=== PATIENT | female | born 1995 | race Caucasian/White ===

== ENCOUNTER 2019-04-25 08:38 | Emergency (ER) | payer BC ==
[2019-04-25] MEDS ORDERED: Sodium Chloride 0.9% 1,000 ML IV ONE (08:50)
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
--- NOTE | 2019-04-25 08:59 | PCM.SN ---
- Free Text/Narrative Note: Called to ER for trauma code. On patient arrival, respiratory status stable. SpO2 100%. 20g PIV started to Rt deep saphenous. Only 1mL of blood was obtained for lab studies. Catheter secured with tape and tegaderm. IV flushes with ease.
[2019-04-25] MEDS ORDERED: Morphine 2 MG/ML Syringe IVPUSH ONE (09:05)
[2019-04-25] MEDS ORDERED: Iopamidol 755 MG/ML 500 ML Multipack Bottle IVPUSH STA (09:09)
--- NOTE | 2019-04-25 09:52 | CT ---
CT abdomen and pelvis Technique: Multiple axial sections were obtained from above the dome of the diaphragm inferiorly through the pubic symphysis. Intravenous contrast was utilized. No oral contrast was given. Limitations: Artifact from patient's arms as well as motion artifact. This significantly limits details. No gross abnormality within the liver or within the spleen. Kidneys are poorly seen within the right lower pole due to motion. No gross abnormality is otherwise seen within the kidneys. Pancreas shows no discrete abnormality. Aorta shows enhancement without aneurysm. No retroperitoneal adenopathy or mesenteric abnormalities are seen. No pelvic mass or adenopathy is seen. No free fluid or inflammatory change is seen. Bone window settings were reviewed which are somewhat limited due to motion. No gross abnormality is appreciated. Impression: 1. Limited exam due to motion. No definite acute finding is appreciated. Note: Recommend repeat exam when patient is able to cooperate. Diagnostic code #2 This report was dictated in [place] Standard Time
--- NOTE | 2019-04-25 09:52 | CT ---
Head CT Technique: Multiple axial sections through the brain were obtained. Intravenous contrast was not utilized. Findings: Scalp injury as noted and soft tissue hematoma within the right side of the scalp is noted. Mild motion artifact is seen. Ventricles along with basal cisterns and sulci over the convexities are within normal limits for the patient's age. No evidence of intracranial hemorrhage is seen. No midline shift or mass-effect is seen. No discrete calvarial abnormality is seen. Mastoid sinuses are clear. Paranasal sinuses show nothing acute. Impression: 1. Scalp injury as well as soft tissue hematoma within the scalp. 2. No acute intracranial abnormality is definitely identified. Diagnostic code #3 This report was dictated in [place] Standard Time
--- NOTE | 2019-04-25 09:52 | CT ---
CT chest Technique: Multiple axial sections through the chest were obtained. Intravenous contrast was utilized. Limitations: Motion artifact is present. Findings: Opacified aorta and pulmonary arteries showed no discrete abnormality. Soft tissue density is noted within the superior mediastinum most likely representing residual thymic tissue. No pericardial effusion is seen. Lungs show slight patchy areas of density within the right upper lung possibly due to pulmonary contusion. Lungs otherwise are grossly clear. Equivocal trace pneumothorax on the right side. This is not definite due to motion artifact. No displaced rib fractures are seen. Evaluation of ribs difficult because of motion. No vertebral body compression deformities are seen. No abnormal subluxation is seen. Possible sternal fracture is present. Impression: 1. Possible sternal fracture. 2. Findings suspicious for right upper lobe pulmonary contusion. 3. Equivocal minimal pneumothorax within the right chest. 4. Details are diminished due to significant motion. Diagnostic code #3 This report was dictated in [place] Standard Time
--- NOTE | 2019-04-25 09:52 | CT ---
CT cervical spine Technique: Multiple axial sections through the cervical spine were obtained. Study is nearly uninterpretable due to motion. No gross fracture is appreciated. Impression: 1. Study nearly uninterpretable. No gross abnormality. Note: Recommend repeat study when patient can cooperate. Diagnostic code #3 This report was dictated in [place] Standard Time
[2019-04-25 10:15] LABS: BLOOD UREA NITROGEN,BUN 16 mg/dL (7.0-18.0); CARBON DIOXIDE,CO2 19.9 mmol/L (21.0-32.0); CHLORIDE,CL 106 mmol/L (98-107); GLUCOSE RANDOM 138 mg/dL (74-106); POTASSIUM,K 4.1 mmol/L (3.5-5.1); SODIUM,NA 138 mmol/L (136-145)
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
== END 2019-04-25 09:35 ==
LOC: MW.ED 08:38
DX: S42.302A Unspecified fracture of shaft of humerus, left arm, initial encounter for closed fracture (principal); S01.81XA Laceration without foreign body of other part of head, initial encounter; S91.312A Laceration without foreign body, left foot, initial encounter; S81.012A Laceration without foreign body, left knee, initial encounter; R41.82 Altered mental status, unspecified; V43.53XA Car driver injured in collision with pick-up truck in traffic accident, initial encounter
CPT/HCPCS: 36415; 70450; 71260; 72125; 74177; 80053; 80307; 85025; 96361; 96374; 99285; J2270; J7030; Q9967

== ENCOUNTER 2020-11-18 18:12 | Inpatient (IN) | payer BC ==
[2020-11-18] MEDS ORDERED: Water For Irrigation,Sterile 1,000 ML Container IRR PRN (19:04)
[2020-11-18] MEDS ORDERED: Nalbuphine 10 MG/1 ML Vial IVPUSH PRN (19:04)
[2020-11-18] MEDS ORDERED: Misoprostol 200 MCG Tab PO PRN (19:04)
[2020-11-18] MEDS ORDERED: Butorphanol 1 MG/ML SDV IVPUSH PRN (19:04)
[2020-11-18] MEDS ORDERED: Sodium Chloride 0.9% 10 ML SDV IV PRN (19:04)
[2020-11-18] MEDS ORDERED: Carboprost Tromethamine 250 MCG/1 ML Amp IM PRN (19:04)
[2020-11-18] MEDS ORDERED: Tranexamic Acid 1,000 MG in Sodium Chloride 0.9% 100 ML IV PRN (19:04)
[2020-11-18] MEDS ORDERED: Sodium Chloride 0.9% 2.5 ML Syringe FLUSH PRN (19:04)
[2020-11-18] MEDS ORDERED: Methylergonovine 0.2 MG/1 ML Amp IM PRN (19:04)
[2020-11-18] MEDS ORDERED: Lidocaine 1% 50 ML MDV INJECT PRN (19:04)
[2020-11-18] MEDS ORDERED: Sodium Chloride 0.9% 10 ML Syringe FLUSH PRN (19:04)
[2020-11-18] MEDS ORDERED: Ondansetron 4 MG/2 ML SDV IVPUSH PRN (19:04)
[2020-11-18] MEDS ORDERED: Misoprostol 25 MCG (1/4 of 100 MCG) Tab VAG PRN (19:11)
[2020-11-18] MEDS ORDERED: Terbutaline 1 MG/ML SDV SUBCUT PRN (19:11)
[2020-11-18] MEDS ORDERED: Oxytocin/0.9 % Sodium Chloride 30 UNIT/500 ML BAG IV SCH ×2 (19:15)
[2020-11-18] MEDS ORDERED: Lactated Ringers 1,000 ML IV SCH (19:15)
[2020-11-19] MEDS ORDERED: Ropivacaine HCl/PF 200 ML ONE (02:03)
--- NOTE | 2020-11-19 02:27 | PCM.POSTAN ---
POST ANESTHESIA ASSESSMENT - MENTAL STATUS Mental Status: Alert, Oriented - RESPIRATORY Respiratory Status: Respiratory Rate WNL, Airway Patent, O2 Saturation Stable - CARDIOVASCULAR CV Status: Pulse Rate WNL, Blood Pressure Stable - GASTROINTESTINAL GI Status: No Symptoms - POST OP HYDRATION Hydration Status: Adequate & Stable
--- NOTE | 2020-11-19 02:27 | PCM.PREANE ---
Preanesthetic Assessment - Anesthesia/Transfusion/Family Hx Anesthesia History: Prior Anesthesia Without Reaction Family History of Anesthesia Reaction: No Transfusion History: Prior Transfusion Without Reaction - Review of Systems General: No Symptoms Pulmonary: No Symptoms Cardiovascular: No Symptoms Gastrointestinal: No Symptoms Neurological: No Symptoms Other: Reports: None - Physical Assessment Height: 5 ft 8 in Weight: 278 lb ASA Class: 2 Mental Status: Alert & Oriented x3 Airway Class: Mallampati = 3 Dentition: Reports: Normal Dentition ROM/Head Extension: Full Lungs: Clear to Auscultation, Normal Respiratory Effort Cardiovascular: Regular Rate, Regular Rhythm - Lab Values: Laboratory Last Values WBC 11.20 K/uL (4.0-11.0) H 11/18/20 18:47 RBC 4.24 M/uL (4.30-5.90) L 11/18/20 18:47 Hgb 12.1 g/dL (12.0-16.0) 11/18/20 18:47 Hct 36.0 % (36.0-46.0) 11/18/20 18:47 MCV 84.9 fL (80.0-98.0) 11/18/20 18:47 MCH 28.5 pg (27.0-32.0) 11/18/20 18:47 MCHC 33.6 g/dL (31.0-37.0) 11/18/20 18:47 RDW Std Deviation 46.6 fl (28.0-62.0) 11/18/20 18:47 RDW Coeff of Mayela 15 % (11.0-15.0) 11/18/20 18:47 Plt Count 209 K/uL (150-400) 11/18/20 18:47 MPV 12.20 fL (7.40-12.00) H 11/18/20 18:47 Nucleated RBC % 0.0 /100WBC 11/18/20 18:47 Nucleated RBCs # 0 K/uL 11/18/20 18:47 APTT 27.6 SEC (18.6-31.3) 11/18/20 18:47 SARS-CoV-2 RNA (VENKAT) NEGATIVE (NEGATIVE) 11/18/20 18:52 Blood Type AB POSITIVE 11/18/20 18:47 Antibody Screen NEGATIVE 11/18/20 18:47 - Allergies Allergies/Adverse Reactions: Allergies Allergy/AdvReac Type Severity Reaction Status Date / Time hydromorphone Allergy Vomiting Verified 11/18/20 19:01 - Blood Blood Available: Yes Product(s) Available: PRBC, FFP, Platelets - Anesthesia Plan Pre-Op Medication Ordered: None - Acknowledgements Anesthesia Type Planned: Epidural Pt an Appropriate Candidate for the Planned Anesthesia: Yes Alternatives and Risks of Anesthesia Discussed w Pt/Guardian: Yes Pt/Guardian Understands and Agrees with Anesthesia Plan: Yes PreAnesthesia Questionnaire Cardiovascular History: Reports: Blood Clots/VTE/DVT Genitourinary History: Reports: Renal Calculus 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 Musculoskeletal History: Reports: Fracture Other Musculoskeletal History: fractures of skull, neck , right ankle, left femur, left knee, left arm, ribs in 2019 Psychiatric History: Reports: Anxiety Dermatologic History: Reports: Eczema - Infectious Disease History Infectious Disease History: Reports: Chicken Pox - Past Surgical History Cardiovascular Surgical History: Reports: None Respiratory Surgical History: Reports: None Female Surgical History: Reports: None Musculoskeletal Surgical History: Reports: Other (See Below) Other Musculoskeletal Surgeries/Procedures:: ACL repair Dermatological Surgical History: Reports: None - HOME MEDS Home Medications: Home Meds Doxylamine Succinate [Unisom] 1 tab PO BEDTIME 11/18/20 [History] Heparin Sodium 15,000 units SQ Q12H 11/18/20 [History] Pnv No.95/Ferrous Fum/Folic AC [ Tablet] 1 tab PO DAILY 11/18/20 [History] - CURRENT (IN HOUSE) MEDS Current Meds: Current Medications Butorphanol Tartrate (Butorphanol 1 Mg/Ml Sdv) 1 mg IVPUSH Q1H PRN PRN Reason: Pain (severe 7-10) Last Admin: 11/19/20 00:37 Dose: 1 mg Documented by: Carboprost Tromethamine (Carboprost Tromethamine 250 Mcg/1 Ml Amp) 250 mcg IM ASDIRECTED PRN PRN Reason: Post Hemorrhage Oxytocin/Sodium Chloride (Oxytocin 30 Unit/500 Ml-Ns) 30 unit in 500 mls @ 999 mls/hr IV TITRATE RUBY Tranexamic Acid 1,000 mg/ (Sodium Chloride) 110 mls @ 660 mls/hr IV ONETIME PRN PRN Reason: Bleeding Lactated Ringer's (Ringers, Lactated) 1,000 mls @ 150 mls/hr IV ASDIRECTED RUBY Oxytocin/Sodium Chloride (Oxytocin 30 Unit/500 Ml-Ns) 30 unit in 500 mls @ 2 mls/hr IV TITRATE RUBY; Protocol Lidocaine HCl (Lidocaine 1% 50 Ml Mdv) 50 ml INJECT ONETIME PRN PRN Reason: Laceration repair Methylergonovine Maleate (Methylergonovine 0.2 Mg/1 Ml Amp) 0.2 mg IM ASDIRECTED PRN PRN Reason: Post Hemorrhage Misoprostol (Misoprostol 200 Mcg Tab) 200 mcg PO ONETIME PRN PRN Reason: Post Hemorrhage Misoprostol (Misoprostol 25 Mcg (1/4 Of 100 Mcg) Tab) 25 mcg VAG Q4H PRN PRN Reason: Cervical Ripening Last Admin: 11/18/20 20:09 Dose: 25 mcg Documented by: Nalbuphine HCl (Nalbuphine 10 Mg/1 Ml Vial) 10 mg IVPUSH Q1H PRN PRN Reason: Pain (severe 7-10) Ondansetron HCl (Ondansetron 4 Mg/2 Ml Sdv) 4 mg IVPUSH Q6H PRN PRN Reason: Nausea/Vomiting Last Admin: 11/19/20 00:36 Dose: 4 mg Documented by: Sodium Chloride (Sodium Chloride 0.9% 10 Ml Syringe) 10 ml FLUSH ASDIRECTED PRN PRN Reason: Keep Vein Open Sodium Chloride (Sodium Chloride 0.9% 2.5 Ml Syringe) 2.5 ml FLUSH ASDIRECTED PRN PRN Reason: Keep Vein Open Sodium Chloride (Sodium Chloride 0.9% 10 Ml Sdv) 10 ml IV ASDIRECTED PRN PRN Reason: IV Use Sterile Water (Water For Irrigation,Sterile 1,000 Ml Container) 1,000 ml IRR ASDIRECTED PRN PRN Reason: delivery Terbutaline Sulfate (Terbutaline 1 Mg/Ml Sdv) 0.25 mg SUBCUT ASDIRECTED PRN PRN Reason: Tacysystole Discontinued Medications Ropivacaine (Naropin 0.2%) Confirm Administered Dose 200 mls @ as directed .ROUTE .STK-MED ONE Stop: 11/19/20 02:04 - Pre-Procedure Checklist Attending Provider Aware: Yes Chart Reviewed: Yes Consent Signed: Yes Labs Reviewed: Yes VS/FHR Reviewed: Yes Patient Identification Confirmation Method: Reports: Verbal Patient Pt an Appropriate Candidate for the Planned Anesthesia: Yes Alternatives and Risks of Anesthesia Discussed w Pt/Guardian: Yes - Procedure Procedure Start Date: 11/19/20 Procedure Start Time: 02:[address]: Reports: Blood Pressure, Heart Rate, SPO2 Functional IV: Yes Safety Measures: Reports: Patient Identified, Procedure Verified, Site Verified, Procedure Time Out Patient Position: Reports: Sitting Prep: Reports: Betadine x3, Sterile Drape Local Anesthetic: Reports: Intradermal Wheal w Lidocaine 1% Regional Placement Level: Reports: L3-4 Needle: Reports: 17 g Touhy Approach: Reports: Midline Technique: Reports: CLAUDIA Plastic Syringe Parasthesia: Reports: None Test Dose Time: 02:14 Test Dose Medication: Reports: Lidocaine 1.5% w Epinephrine 1:200,000 Test Dose Response: Reports: Negative Loading Dose Time: 02:12 Loading Dose Medication: bupivicaine 0.25% 10cc Loading Dose Patient Position: sitting Continuous Infusion Start Time: 02:20 Continuous Infusion Medication: ropivicaine 0.2% Continuous Infusion Rate: 16 Continuous Infusion PCS Bolus Option: 4 Patient Position Post Placement: Reports: Supline/LORENZO VS and FHR Monitored in Unit Post Placement: Yes Procedure End Date: 11/19/20 Procedure End Time: 03:10
[2020-11-19] MEDS ORDERED: Sodium Chloride 0.9% 0 ML ONE ×2 (06:56→06:57)
[2020-11-19] MEDS ORDERED: Sodium Chloride 0.9% 1,000 ML IRR SCH (07:00)
[2020-11-19] MEDS ORDERED: fentaNYL 100 MCG/2 ML SDV ONE (07:54)
[2020-11-19] MEDS ORDERED: Bupivacaine 0.5% 10 ML SDV ONE (07:56)
[2020-11-19] MEDS ORDERED: Lidocaine 2% 5 ML SDV ONE (07:56)
[2020-11-19] MEDS ORDERED: ceFAZolin 1 GM Vial ONE (08:07)
[2020-11-19] MEDS ORDERED: Azithromycin 500 MG in Sodium Chloride 0.9% 250 ML IV SCH (08:15)
[2020-11-19] MEDS ORDERED: Morphine PF 10 MG/10 ML SDV ONE (08:34)
[2020-11-19] MEDS ORDERED: Dextrose 10% in Water 500 ML ONE (08:50)
[2020-11-19] MEDS ORDERED: Ondansetron 4 MG/2 ML SDV ONE (08:58)
[2020-11-19] MEDS ORDERED: Oxytocin 10 Units/1 ML SDV ONE (08:58)
[2020-11-19] MEDS ORDERED: Ketorolac 30 MG/ML SDV ONE (08:58)
[2020-11-19] MEDS ORDERED: Acetaminophen/oxyCODONE 325-5 MG Tab PO PRN ×2 (09:09→11:41)
[2020-11-19] MEDS ORDERED: Ondansetron 4 MG/2 ML SDV IVPUSH PRN ×2 (09:09→11:41)
[2020-11-19] MEDS ORDERED: Lanolin 100% Cream 7 GM Tube TOP PRN (09:09)
[2020-11-19] MEDS ORDERED: Bisacodyl 10 MG Supp RECTAL PRN (09:09)
[2020-11-19] MEDS ORDERED: diphenhydrAMINE 50 MG/ML SDV IVPUSH PRN ×2 (09:09→11:41)
[2020-11-19] MEDS ORDERED: Lactated Ringers 1,000 ML IV SCH (09:15)
[2020-11-19] MEDS ORDERED: Oxytocin/0.9 % Sodium Chloride 30 UNIT/500 ML BAG IV SCH (09:15)
--- NOTE | 2020-11-19 09:18 | PCM.OPNOTE ---
<Shira Garcia - Last Filed: 11/19/20 09:40> - General Post-Op/Procedure Note Date of Surgery/Procedure: 11/26/20 Operative Procedure(s): Section Pre Op Diagnosis: complicated by maternal obesity and lovenox and heparin use. Induction of labor d/t oligohydramnios complicated by persistent category 2 FHT and nonreassuring heart tones. Post-Op Diagnosis: Same Anesthesia Technique: Epidural Primary Surgeon: Lucy Robledo Chief I Dispatcher: Shira Garcia Pathology: Placenta Fluid Replacement, Intraop: 1,500 Output, Urine Amount: 350 EBL in mLs: 600 Condition: Stable Free Text/Narrative:: 25-year-old female at 39w1d admitted for induction of labor due to oligohydramnios s/p primary section d/t persistent category II FHT and nonreassuring heart tones. complicated by maternal obesity and patient taking lovenox and heparin d/t prior DVT. Blood type AB+, antibody negative, GBS negative, Rubella immune. Viable male. Apgars 2/6/9, weight 2500 grams. <Lucy Robledo - Last Filed: 11/19/20 09:49> - General Post-Op/Procedure Note Findings: Live male , Apgars 2/6/8, weight 2500g Couvelaire-appearing uterus posteriorly Normal-appearing ovaries and tubes Small umbilical cord Anesthesia Provider: Connor Vallejo Pathology: Umbilical cord gases and blood Complications: Unable to deliver head, bandage scissors used to T hysterotomy and allow for breech extraction Free Text/Narrative:: Intake & Output 11/18/20 11/19/20 11/19/20 22:59 06:59 14:59 Intake Total 1500 Output Total 350 Balance 1150
[2020-11-19] MEDS ORDERED: Naloxone 0.4 MG/ML Syringe IVPUSH PRN (11:41)
[2020-11-19] MEDS ORDERED: fentaNYL 100 MCG/2 ML SDV IVPUSH PRN (11:41)
[2020-11-19] MEDS ORDERED: Nalbuphine 10 MG/1 ML Vial IVPUSH PRN (11:41)
--- NOTE | 2020-11-19 11:43 | PCM48HPAN ---
Post Anesthesia Note - EVALUATION WITHIN 48HRS OF ANESTHETIC Vital Signs in Normal Range: Yes Patient Participated in Evaluation: Yes Respiratory Function Stable: Yes Airway Patent: Yes Cardiovascular Function Stable: Yes Hydration Status Stable: Yes Pain Control Satisfactory: Yes Nausea and Vomiting Control Satisfactory: Yes Mental Status Recovered: Yes Vital Signs: Last Vital Signs Temp 96.8 F L 11/19/20 09:10 Pulse 74 11/19/20 09:10 Resp 24 H 11/19/20 09:10 BP 107/49 L 11/19/20 09:10 Pulse Ox 96 11/19/20 09:10
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
[2020-11-19] MEDS: Ketorolac 30 MG/ML SDV IVPUSH SCH ×2 (15:46→21:30)
[2020-11-19] MEDS: Docusate Sodium 100 MG Cap PO SCH (21:00)
[2020-11-19] MEDS: Enoxaparin 150 MG/1 ML Syringe SUBCUT SCH (22:06)
[2020-11-20] MEDS: Ketorolac 30 MG/ML SDV IVPUSH SCH ×3 (04:02→09:06)
--- NOTE | 2020-11-20 07:11 | PCM.PNPP ---
<Shira Garcia - Last Filed: 11/20/20 07:31> - General Info Date of Service: 11/20/20 Admission Dx/Problem (Free Text): Induction of labor s/t section Subjective Update: Appears to be doing okay. Has stomach pain while eating. Denies nausea or vomiting. Otherwise pain controlled with medication. Denies passing gas or bowel movement, took docusate yesterday. Erickson catheter out this morning, has not spontaneously urinated yet. Ambulating well. in nursery, so has been pumping to encourage milk supply. - Review of Systems General: Reports: No Symptoms HEENT: Reports: No Symptoms Pulmonary: Reports: No Symptoms Cardiovascular: Reports: No Symptoms Gastrointestinal: Reports: Abdominal Pain, Decreased Appetite Genitourinary: Reports: No Symptoms Musculoskeletal: Reports: No Symptoms Skin: Reports: No Symptoms Neurological: Reports: No Symptoms Psychiatric: Reports: No Symptoms - General Info Date of Service: 11/20/20 - Patient Data Vital Signs - Most Recent: Last Vital Signs Temp 36.6 C 11/20/20 02:00 Pulse 96 11/20/20 04:00 Resp 17 11/20/20 04:00 BP 114/55 L 11/20/20 02:00 Pulse Ox 97 11/20/20 04:00 Weight - Most Recent: 126.099 kg I&O - Last 24 Hours: Intake & Output 11/19/20 11/20/20 11/20/20 22:59 06:59 14:59 Output Total 250 Balance -250 Lab Results - Last 24 Hours: Laboratory Results - last 24 hr 11/19/20 11/20/20 Range/Units 08:26 04:40 Hgb 9.9 L (12.0-16.0) g/dL Hct 30.3 L (36.0-46.0) % Cord ABG pH 7.188 (7.18-7.38) Cord ABG Base Excess -10 (-10--2) Cord VBG pH 7.233 L (7.25-7.45) Cord VBG Base Excess -5.8 (-10--2) Med Orders - Current: Current Medications Bisacodyl (Bisacodyl 10 Mg Supp) 10 mg RECTAL ONETIME PRN PRN Reason: Constipation Butorphanol Tartrate (Butorphanol 1 Mg/Ml Sdv) 1 mg IVPUSH Q1H PRN PRN Reason: Pain (severe 7-10) Last Admin: 11/19/20 00:37 Dose: 1 mg Documented by: Carboprost Tromethamine (Carboprost Tromethamine 250 Mcg/1 Ml Amp) 250 mcg IM ASDIRECTED PRN PRN Reason: Post Hemorrhage Diphenhydramine HCl (Diphenhydramine 50 Mg/Ml Sdv) 25 mg IVPUSH Q6H PRN PRN Reason: Itching or Nausea Diphenhydramine HCl (Diphenhydramine 50 Mg/Ml Sdv) 12.5 mg IVPUSH Q2H PRN PRN Reason: Itching Docusate Sodium (Docusate Sodium 100 Mg Cap) 100 mg PO BID [facility] Last Admin: 11/19/20 21:00 Dose: 100 mg Documented by: Emollient Ointment (Lanolin 100% Cream 7 Gm Tube) 0 gm TOP ASDIRECTED PRN PRN Reason: Sore Nipples Last Admin: 11/20/20 02:00 Dose: 7 gram Documented by: Enoxaparin Sodium (Enoxaparin 150 Mg/1 Ml Syringe) 120 mg SUBCUT Q12H RUBY Last Admin: 11/19/20 22:06 Dose: 120 mg Documented by: Fentanyl (Fentanyl 100 Mcg/2 Ml Sdv) 50 mcg IVPUSH Q1H PRN PRN Reason: Pain (severe 7-10) Oxytocin/Sodium Chloride (Oxytocin 30 Unit/500 Ml-Ns) 30 unit in 500 mls @ 999 mls/hr IV TITRATE [facility] Tranexamic Acid 1,000 mg/ (Sodium Chloride) 110 mls @ 660 mls/hr IV ONETIME PRN PRN Reason: Bleeding Lactated Ringer's (Ringers, Lactated) 1,000 mls @ 150 mls/hr IV ASDIRECTED [facility] Last Admin: 11/19/20 07:47 Dose: 150 mls/hr Documented by: Oxytocin/Sodium Chloride (Oxytocin 30 Unit/500 Ml-Ns) 30 unit in 500 mls @ 2 mls/hr IV TITRATE RUBY; Protocol Sodium Chloride (Sodium Chloride 0.9%) 1,000 mls @ 125 mls/hr IRR ASDIRECTED [facility] Azithromycin 500 mg/ Sodium (Chloride) 250 mls @ 250 mls/hr IV ONETIME RUBY Last Admin: 11/19/20 10:03 Dose: 250 mls/hr Documented by: Lactated Ringer's (Ringers, Lactated) 1,000 mls @ 125 mls/hr IV ASDIRECTED [facility] Last Admin: 11/19/20 15:58 Dose: 125 mls/hr Documented by: Oxytocin/Sodium Chloride (Oxytocin 30 Unit/500 Ml-Ns) 30 unit in 500 mls @ 999 mls/hr IV TITRATE RUBY; Protocol Ibuprofen (Ibuprofen 800 Mg Tab) 800 mg PO Q8H PRN PRN Reason: mild pain or fever Ketorolac Tromethamine (Ketorolac 30 Mg/Ml Sdv) 30 mg IVPUSH Q6H [facility] Stop: 11/20/20 09:16 Last Admin: 11/20/20 04:02 Dose: 30 mg Documented by: Lidocaine HCl (Lidocaine 1% 50 Ml Mdv) 50 ml INJECT ONETIME PRN PRN Reason: Laceration repair Methylergonovine Maleate (Methylergonovine 0.2 Mg/1 Ml Amp) 0.2 mg IM ASDIRECTED PRN PRN Reason: Post Hemorrhage Misoprostol (Misoprostol 200 Mcg Tab) 200 mcg PO ONETIME PRN PRN Reason: Post Hemorrhage Misoprostol (Misoprostol 25 Mcg (1/4 Of 100 Mcg) Tab) 25 mcg VAG Q4H PRN PRN Reason: Cervical Ripening Last Admin: 11/18/20 20:09 Dose: 25 mcg Documented by: Nalbuphine HCl (Nalbuphine 10 Mg/1 Ml Vial) 10 mg IVPUSH Q1H PRN PRN Reason: Pain (severe 7-10) Nalbuphine HCl (Nalbuphine 10 Mg/1 Ml Vial) 5 mg IVPUSH ASDIRECTED PRN PRN Reason: Itching Naloxone HCl (Naloxone 0.4 Mg/Ml Syringe) 0.1 mg IVPUSH ONETIME PRN PRN Reason: Respiratory Depression Stop: 11/20/20 11:42 Ondansetron HCl (Ondansetron 4 Mg/2 Ml Sdv) 4 mg IVPUSH Q6H PRN PRN Reason: Nausea/Vomiting Last Admin: 11/19/20 00:36 Dose: 4 mg Documented by: Ondansetron HCl (Ondansetron 4 Mg/2 Ml Sdv) 4 mg IVPUSH Q4H PRN PRN Reason: Nausea/Vomiting Ondansetron HCl (Ondansetron 4 Mg/2 Ml Sdv) 4 mg IVPUSH Q6H PRN PRN Reason: Nausea Oxycodone/Acetaminophen (Acetaminophen/Oxycodone 325-5 Mg Tab) 1 tab PO Q4H PRN PRN Reason: Pain (severe 7-10) Oxycodone/Acetaminophen (Acetaminophen/Oxycodone 325-5 Mg Tab) 2 tab PO Q4H PRN PRN Reason: Pain (severe 7-10) Oxycodone/Acetaminophen (Acetaminophen/Oxycodone 325-5 Mg Tab) 2 tab PO Q6H PRN PRN Reason: Pain (moderate 4-6) Sodium Chloride (Sodium Chloride 0.9% 10 Ml Syringe) 10 ml FLUSH ASDIRECTED PRN PRN Reason: Keep Vein Open Sodium Chloride (Sodium Chloride 0.9% 2.5 Ml Syringe) 2.5 ml FLUSH ASDIRECTED PRN PRN Reason: Keep Vein Open Sodium Chloride (Sodium Chloride 0.9% 10 Ml Sdv) 10 ml IV ASDIRECTED PRN PRN Reason: IV Use Sterile Water (Water For Irrigation,Sterile 1,000 Ml Container) 1,000 ml IRR ASDIRECTED PRN PRN Reason: delivery Terbutaline Sulfate (Terbutaline 1 Mg/Ml Sdv) 0.25 mg SUBCUT ASDIRECTED PRN PRN Reason: Tacysystole Discontinued Medications Bupivacaine HCl (Bupivacaine 0.5% 10 Ml Sdv) Confirm Administered Dose 20 ml .ROUTE .STK-MED ONE Stop: 11/19/20 07:57 Cefazolin Sodium (Cefazolin 1 Gm Vial) Confirm Administered Dose 1 gm .ROUTE .STK-MED ONE Stop: 11/19/20 08:08 Fentanyl (Fentanyl 100 Mcg/2 Ml Sdv) Confirm Administered Dose 100 mcg .ROUTE .STK-MED ONE Stop: 11/19/20 07:55 Ropivacaine (Naropin 0.2%) Confirm Administered Dose 200 mls @ as directed .ROUTE .STK-MED ONE Stop: 11/19/20 02:04 Sodium Chloride (Normal Saline (Advbag)) Confirm Administered Dose 250 mls @ as directed .ROUTE .STK-MED ONE Stop: 11/19/20 06:57 Sodium Chloride (Normal Saline (Advbag)) Confirm Administered Dose 250 mls @ as directed .ROUTE .STK-MED ONE Stop: 11/19/20 06:58 Dextrose/Water (Dextrose 10% In Water) Confirm Administered Dose 500 mls @ as directed .ROUTE .STK-MED ONE Stop: 11/19/20 08:51 Ketorolac Tromethamine (Ketorolac 30 Mg/Ml Sdv) Confirm Administered Dose 30 mg .ROUTE .STK-MED ONE Stop: 11/19/20 08:59 Lidocaine (Lidocaine 2% 5 Ml Sdv) Confirm Administered Dose 5 ml .ROUTE .STK-MED ONE Stop: 11/19/20 07:57 Miscellaneous Medication (Phenylephrine Hcl In 0.9% Nacl 1 Mg/10 Ml Syringe) Confirm Administered Dose 1 mg .ROUTE .STK-MED ONE Stop: 11/19/20 08:31 Miscellaneous Medication (Phenylephrine Hcl In 0.9% Nacl 1 Mg/10 Ml Syringe) Confirm Administered Dose 1 mg .ROUTE .STK-MED ONE Stop: 11/19/20 08:59 Morphine Sulfate (Morphine Pf 10 Mg/10 Ml Sdv) Confirm Administered Dose 10 mg .ROUTE .STK-MED ONE Stop: 11/19/20 08:35 Ondansetron HCl (Ondansetron 4 Mg/2 Ml Sdv) Confirm Administered Dose 4 mg .ROUTE .STK-MED ONE Stop: 11/19/20 08:59 Oxytocin (Oxytocin 10 Units/1 Ml Sdv) Confirm Administered Dose 30 unit .ROUTE .STK-MED ONE Stop: 11/19/20 08:59 - Infant Interaction Disposition, : Dustin to Nursery Feeding: Other (see below) (Pumping until able to breastfeed) Support Person: - Recovery Exam Fundal Tone: Firm Fundal Level: 1 Fingerbreadths Below Umbilicus Fundal Placement: Midline Lochia Amount: Scant Lochia Color: Rubra/Red Episiotomy/Laceration: None Bladder Status: Voiding Urinary Elimination: Other (see below) (Catheter out this morning, no spontaneously urination yet) - Exam General: Alert, Oriented HEENT: EOMI Neck: Supple Lungs: Clear to Auscultation, Normal Respiratory Effort Cardiovascular: Regular Rate, Regular Rhythm, No Murmurs GI/Abdominal Exam: Soft, Tender Extremities: Normal Inspection, Normal Range of Motion, Non-Tender, No Pedal Edema Skin: Warm, Dry, Intact Wound/Incisions: Healing Well, Dressing Dry and Intact Neurological: No New Focal Deficit Psy/Mental Status: Alert, Normal Affect, Normal Mood - Problem List Review Problem List Initiated/Reviewed/Updated: Yes - Assessment Assessment:: 25-year-old female at 39w1d POD #1 admitted for induction of labor due to oligohydramnios s/p primary section d/t persistent category II FHT and nonreassuring heart tones. Endorses abdominal pain with food. Taking docusate. hbg 9.9 from 12.1, asymptomatic. Lovenox started last night. - Plan Plan:: -Routine care - Multimodal pain control - Monitor for spontaneous urination - Continue to monitor abdominal pain with eating, will likely resolve - Continue to monitor incision and dressing - F/u in clinic in 2 weeks - Lovenox started <Lucy Robledo - Last Filed: 11/20/20 09:59> - General Info Functional Status: Reports: Pain Controlled, Tolerating Diet, Ambulating - Patient Data Vital Signs - Most Recent: Last Vital Signs Temp 36.9 C 11/20/20 07:59 Pulse 93 11/20/20 07:59 Resp 18 11/20/20 07:59 BP 96/61 11/20/20 07:59 Pulse Ox 96 11/20/20 07:59 I&O - Last 24 Hours: Intake & Output 11/19/20 11/20/20 11/20/20 22:59 06:59 14:59 Intake Total 500 Output Total 250 500 Balance -250 0 Lab Results - Last 24 Hours: Laboratory Results - last 24 hr 11/19/20 11/20/20 Range/Units 08:26 04:40 Hgb 9.9 L (12.0-16.0) g/dL Hct 30.3 L (36.0-46.0) % Cord ABG pH 7.188 (7.18-7.38) Cord ABG Base Excess -10 (-10--2) Cord VBG pH 7.233 L (7.25-7.45) Cord VBG Base Excess -5.8 (-10--2) Med Orders - Current: Current Medications Bisacodyl (Bisacodyl 10 Mg Supp) 10 mg RECTAL ONETIME PRN PRN Reason: Constipation Butorphanol Tartrate (Butorphanol 1 Mg/Ml Sdv) 1 mg IVPUSH Q1H PRN PRN Reason: Pain (severe 7-10) Last Admin: 11/19/20 00:37 Dose: 1 mg Documented by: Carboprost Tromethamine (Carboprost Tromethamine 250 Mcg/1 Ml Amp) 250 mcg IM ASDIRECTED PRN PRN Reason: Post Hemorrhage Diphenhydramine HCl (Diphenhydramine 50 Mg/Ml Sdv) 25 mg IVPUSH Q6H PRN PRN Reason: Itching or Nausea Diphenhydramine HCl (Diphenhydramine 50 Mg/Ml Sdv) 12.5 mg IVPUSH Q2H PRN PRN Reason: Itching Docusate Sodium (Docusate Sodium 100 Mg Cap) 100 mg PO BID [facility] Last Admin: 11/20/20 09:05 Dose: 100 mg Documented by: Emollient Ointment (Lanolin 100% Cream 7 Gm Tube) 0 gm TOP ASDIRECTED PRN PRN Reason: Sore Nipples Last Admin: 11/20/20 02:00 Dose: 7 gram Documented by: Enoxaparin Sodium (Enoxaparin 150 Mg/1 Ml Syringe) 120 mg SUBCUT Q12H [facility] Last Admin: 11/20/20 09:08 Dose: 120 mg Documented by: Fentanyl (Fentanyl 100 Mcg/2 Ml Sdv) 50 mcg IVPUSH Q1H PRN PRN Reason: Pain (severe 7-10) Oxytocin/Sodium Chloride (Oxytocin 30 Unit/500 Ml-Ns) 30 unit in 500 mls @ 999 mls/hr IV TITRATE [facility] Tranexamic Acid 1,000 mg/ (Sodium Chloride) 110 mls @ 660 mls/hr IV ONETIME PRN PRN Reason: Bleeding Lactated Ringer's (Ringers, Lactated) 1,000 mls @ 150 mls/hr IV ASDIRECTED [facility] Last Admin: 11/19/20 07:47 Dose: 150 mls/hr Documented by: Oxytocin/Sodium Chloride (Oxytocin 30 Unit/500 Ml-Ns) 30 unit in 500 mls @ 2 mls/hr IV TITRATE [facility]; Protocol Sodium Chloride (Sodium Chloride 0.9%) 1,000 mls @ 125 mls/hr IRR ASDIRECTED [facility] Azithromycin 500 mg/ Sodium (Chloride) 250 mls @ 250 mls/hr IV ONETIME RUBY Last Admin: 11/19/20 10:03 Dose: 250 mls/hr Documented by: Lactated Ringer's (Ringers, Lactated) 1,000 mls @ 125 mls/hr IV ASDIRECTED RUBY Last Admin: 11/19/20 15:58 Dose: 125 mls/hr Documented by: Oxytocin/Sodium Chloride (Oxytocin 30 Unit/500 Ml-Ns) 30 unit in 500 mls @ 999 mls/hr IV TITRATE RUBY; Protocol Ibuprofen (Ibuprofen 800 Mg Tab) 800 mg PO Q8H PRN PRN Reason: mild pain or fever Lidocaine HCl (Lidocaine 1% 50 Ml Mdv) 50 ml INJECT ONETIME PRN PRN Reason: Laceration repair Methylergonovine Maleate (Methylergonovine 0.2 Mg/1 Ml Amp) 0.2 mg IM ASDIRECTED PRN PRN Reason: Post Hemorrhage Misoprostol (Misoprostol 200 Mcg Tab) 200 mcg PO ONETIME PRN PRN Reason: Post Hemorrhage Misoprostol (Misoprostol 25 Mcg (1/4 Of 100 Mcg) Tab) 25 mcg VAG Q4H PRN PRN Reason: Cervical Ripening Last Admin: 11/18/20 20:09 Dose: 25 mcg Documented by: Nalbuphine HCl (Nalbuphine 10 Mg/1 Ml Vial) 10 mg IVPUSH Q1H PRN PRN Reason: Pain (severe 7-10) Nalbuphine HCl (Nalbuphine 10 Mg/1 Ml Vial) 5 mg IVPUSH ASDIRECTED PRN PRN Reason: Itching Naloxone HCl (Naloxone 0.4 Mg/Ml Syringe) 0.1 mg IVPUSH ONETIME PRN PRN Reason: Respiratory Depression Stop: 11/20/20 11:42 Ondansetron HCl (Ondansetron 4 Mg/2 Ml Sdv) 4 mg IVPUSH Q6H PRN PRN Reason: Nausea/Vomiting Last Admin: 11/19/20 00:36 Dose: 4 mg Documented by: Ondansetron HCl (Ondansetron 4 Mg/2 Ml Sdv) 4 mg IVPUSH Q4H PRN PRN Reason: Nausea/Vomiting Ondansetron HCl (Ondansetron 4 Mg/2 Ml Sdv) 4 mg IVPUSH Q6H PRN PRN Reason: Nausea Oxycodone/Acetaminophen (Acetaminophen/Oxycodone 325-5 Mg Tab) 1 tab PO Q4H PRN PRN Reason: Pain (severe 7-10) Oxycodone/Acetaminophen (Acetaminophen/Oxycodone 325-5 Mg Tab) 2 tab PO Q4H PRN PRN Reason: Pain (severe 7-10) Oxycodone/Acetaminophen (Acetaminophen/Oxycodone 325-5 Mg Tab) 2 tab PO Q6H PRN PRN Reason: Pain (moderate 4-6) Sodium Chloride (Sodium Chloride 0.9% 10 Ml Syringe) 10 ml FLUSH ASDIRECTED PRN PRN Reason: Keep Vein Open Sodium Chloride (Sodium Chloride 0.9% 2.5 Ml Syringe) 2.5 ml FLUSH ASDIRECTED PRN PRN Reason: Keep Vein Open Sodium Chloride (Sodium Chloride 0.9% 10 Ml Sdv) 10 ml IV ASDIRECTED PRN PRN Reason: IV Use Sterile Water (Water For Irrigation,Sterile 1,000 Ml Container) 1,000 ml IRR ASDIRECTED PRN PRN Reason: delivery Terbutaline Sulfate (Terbutaline 1 Mg/Ml Sdv) 0.25 mg SUBCUT ASDIRECTED PRN PRN Reason: Tacysystole Discontinued Medications Bupivacaine HCl (Bupivacaine 0.5% 10 Ml Sdv) Confirm Administered Dose 20 ml .ROUTE .STK-MED ONE Stop: 11/19/20 07:57 Cefazolin Sodium (Cefazolin 1 Gm Vial) Confirm Administered Dose 1 gm .ROUTE .STK-MED ONE Stop: 11/19/20 08:08 Fentanyl (Fentanyl 100 Mcg/2 Ml Sdv) Confirm Administered Dose 100 mcg .ROUTE .STK-MED ONE Stop: 11/19/20 07:55 Ropivacaine (Naropin 0.2%) Confirm Administered Dose 200 mls @ as directed .ROUTE .STK-MED ONE Stop: 11/19/20 02:04 Last Admin: 11/20/20 08:52 Dose: Not Given Documented by: Sodium Chloride (Normal Saline (Advbag)) Confirm Administered Dose 250 mls @ as directed .ROUTE .STK-MED ONE Stop: 11/19/20 06:57 Last Admin: 11/20/20 08:52 Dose: Not Given Documented by: Sodium Chloride (Normal Saline (Advbag)) Confirm Administered Dose 250 mls @ as directed .ROUTE .STK-MED ONE Stop: 11/19/20 06:58 Last Admin: 11/20/20 08:52 Dose: Not Given Documented by: Dextrose/Water (Dextrose 10% In Water) Confirm Administered Dose 500 mls @ as directed .ROUTE .STK-MED ONE Stop: 11/19/20 08:51 Last Admin: 11/20/20 08:52 Dose: Not Given Documented by: Ketorolac Tromethamine (Ketorolac 30 Mg/Ml Sdv) Confirm Administered Dose 30 mg .ROUTE .STK-MED ONE Stop: 11/19/20 08:59 Ketorolac Tromethamine (Ketorolac 30 Mg/Ml Sdv) 30 mg IVPUSH Q6H RUBY Stop: 11/20/20 09:16 Last Admin: 11/20/20 09:06 Dose: 30 mg Documented by: Lidocaine (Lidocaine 2% 5 Ml Sdv) Confirm Administered Dose 5 ml .ROUTE .STK-MED ONE Stop: 11/19/20 07:57 Miscellaneous Medication (Phenylephrine Hcl In 0.9% Nacl 1 Mg/10 Ml Syringe) Confirm Administered Dose 1 mg .ROUTE .STK-MED ONE Stop: 11/19/20 08:31 Miscellaneous Medication (Phenylephrine Hcl In 0.9% Nacl 1 Mg/10 Ml Syringe) Confirm Administered Dose 1 mg .ROUTE .STK-MED ONE Stop: 11/19/20 08:59 Morphine Sulfate (Morphine Pf 10 Mg/10 Ml Sdv) Confirm Administered Dose 10 mg .ROUTE .STK-MED ONE Stop: 11/19/20 08:35 Ondansetron HCl (Ondansetron 4 Mg/2 Ml Sdv) Confirm Administered Dose 4 mg .ROUTE .STK-MED ONE Stop: 11/19/20 08:59 Oxytocin (Oxytocin 10 Units/1 Ml Sdv) Confirm Administered Dose 30 unit .ROUTE .STK-MED ONE Stop: 11/19/20 08:59 - Infant Interaction Feeding: Other (see below) - Recovery Exam Urinary Elimination: Other (see below) - Problem List & Annotations (1) Status post primary low transverse section SNOMED Code(s): 722670812, 74217416, 882816485, 594211613, 436231588 Code(s): Z98.891 - HISTORY OF UTERINE SCAR FROM PREVIOUS SURGERY Status: Acute Current Visit: Yes (2) History of deep vein thrombosis SNOMED Code(s): 197404556 Code(s): Z86.718 - PERSONAL HISTORY OF OTHER VENOUS THROMBOSIS AND EMBOLISM Status: Acute Current Visit: Yes - My Orders Last 24 Hours: My Active Orders 11/19/20 09:09 Notify Provider Intake and Out [RC] ASDIRECTED Notify Provider Vital Signs [RC] ASDIRECTED Urinary Catheter Removal [RC] PER UNIT ROUTINE Acetaminophen/oxyCODONE [Percocet 325-5 MG] 1 tab PO Q4H PRN Acetaminophen/oxyCODONE [Percocet 325-5 MG] 2 tab PO Q4H PRN Ibuprofen [Motrin] 800 mg PO Q8H PRN Lanolin [Lansinoh HPA] See Dose Instructions TOP ASDIRECTED PRN Ondansetron [Zofran] 4 mg IVPUSH Q4H PRN bisacodyL [Dulcolax] 10 mg RECTAL ONETIME PRN diphenhydrAMINE [Benadryl] 25 mg IVPUSH Q6H PRN Abdominal Binder [OM.PC] Routine DVT/VTE Prophylaxis Reflex [OM.PC] Routine Heat Therapy [OM.PC] Routine Ice Therapy [OM.PC] Routine 11/19/20 09:10 Patient Status [ADT] Routine Ambulate [RC] PER UNIT ROUTINE Antiembolic Devices [RC] PER UNIT ROUTINE Communication Order [RC] PER UNIT ROUTINE Communication Order [RC] PER UNIT ROUTINE Communication Order [RC] Per Unit Routine RT Incentive Spirometry [RC] Q2HWA Vital Signs [RC] PER UNIT ROUTINE Assess Lochia [WOMSER] Per Unit Routine Assess Uterine Involution [WOMSER] Per Unit Routine Breast Pump [WOMSER] Per Unit Routine Peripheral IV Discontinue [OM.PC] Routine Sequential Compression Device [OM.PC] Per Unit Routine 11/19/20 09:12 Intake and Output [RC] Q12H 11/19/20 09:13 Antiembolic Devices [RC] .Routine VTE/DVT Education [RC] PER UNIT ROUTINE 11/19/20 09:15 Lactated Ringers [Ringers, Lactated] 1,000 ml IV ASDIRECTED Oxytocin/0.9 % Sodium Chloride [Oxytocin 30 Unit/500 ML-NS] 30 unit in 500 ml IV TITRATE 11/19/20 Lunch Regular Diet [DIET] 11/19/20 21:00 Docusate Sodium [Colace] 100 mg PO BID Enoxaparin [Lovenox] 120 mg SUBCUT Q12H - Plan Plan:: I have reviewed and agree with the above. Simethicone for gas pain. Encourage ambulation today. Bleeding controlled with Lovenox restart. Likely discharge home on POD#2 or 3.
[2020-11-20] MEDS: Docusate Sodium 100 MG Cap PO SCH ×2 (09:05→22:00)
[2020-11-20] MEDS: Enoxaparin 150 MG/1 ML Syringe SUBCUT SCH ×2 (09:08→21:57)
[2020-11-20] MEDS: Simethicone 80 MG Tab.Chew PO PRN ×2 (10:39→18:12)
[2020-11-20] MEDS: Acetaminophen/oxyCODONE 325-5 MG Tab PO PRN ×3 (14:05→22:00)
[2020-11-20] MEDS: Ibuprofen 800 MG Tab PO PRN (18:08)
[2020-11-21] MEDS: Acetaminophen/oxyCODONE 325-5 MG Tab PO PRN ×2 (03:31→09:13)
[2020-11-21] MEDS: Ibuprofen 800 MG Tab PO PRN (03:32)
--- NOTE | 2020-11-21 08:26 | PCM.PNPP ---
<Shira Garcia - Last Filed: 11/21/20 09:27> - General Info Date of Service: 11/21/20 Admission Dx/Problem (Free Text): Induction of labor s/p section Subjective Update: Appears to be doing well. C/o incision site pain controlled with pain medication. Passing some gas, but no bowel movement. Taking colace. Ambulating, urinating, and tolerating food well. . Wants to go home today. - Review of Systems General: Reports: No Symptoms HEENT: Reports: No Symptoms Pulmonary: Reports: No Symptoms Cardiovascular: Reports: No Symptoms Gastrointestinal: Reports: Abdominal Pain, Constipation Genitourinary: Reports: No Symptoms Musculoskeletal: Reports: No Symptoms Skin: Reports: No Symptoms Neurological: Reports: No Symptoms Psychiatric: Reports: No Symptoms - General Info Date of Service: 11/21/20 - Patient Data Vital Signs - Most Recent: Last Vital Signs Temp 36.8 C 11/21/20 08:01 Pulse 83 11/21/20 08:01 Resp 18 11/21/20 08:01 BP 112/68 11/21/20 08:01 Pulse Ox 99 11/21/20 08:01 Weight - Most Recent: 126.099 kg Med Orders - Current: Current Medications Bisacodyl (Bisacodyl 10 Mg Supp) 10 mg RECTAL ONETIME PRN PRN Reason: Constipation Butorphanol Tartrate (Butorphanol 1 Mg/Ml Sdv) 1 mg IVPUSH Q1H PRN PRN Reason: Pain (severe 7-10) Last Admin: 11/19/20 00:37 Dose: 1 mg Documented by: Carboprost Tromethamine (Carboprost Tromethamine 250 Mcg/1 Ml Amp) 250 mcg IM ASDIRECTED PRN PRN Reason: Post Hemorrhage Diphenhydramine HCl (Diphenhydramine 50 Mg/Ml Sdv) 25 mg IVPUSH Q6H PRN PRN Reason: Itching or Nausea Diphenhydramine HCl (Diphenhydramine 50 Mg/Ml Sdv) 12.5 mg IVPUSH Q2H PRN PRN Reason: Itching Docusate Sodium (Docusate Sodium 100 Mg Cap) 100 mg PO BID RUBY Last Admin: 11/20/20 22:00 Dose: 100 mg Documented by: Emollient Ointment (Lanolin 100% Cream 7 Gm Tube) 0 gm TOP ASDIRECTED PRN PRN Reason: Sore Nipples Last Admin: 11/20/20 02:00 Dose: 7 gram Documented by: Enoxaparin Sodium (Enoxaparin 150 Mg/1 Ml Syringe) 120 mg SUBCUT Q12H RUBY Last Admin: 11/20/20 21:57 Dose: 120 mg Documented by: Fentanyl (Fentanyl 100 Mcg/2 Ml Sdv) 50 mcg IVPUSH Q1H PRN PRN Reason: Pain (severe 7-10) Oxytocin/Sodium Chloride (Oxytocin 30 Unit/500 Ml-Ns) 30 unit in 500 mls @ 999 mls/hr IV TITRATE [facility]BY Tranexamic Acid 1,000 mg/ (Sodium Chloride) 110 mls @ 660 mls/hr IV ONETIME PRN PRN Reason: Bleeding Lactated Ringer's (Ringers, Lactated) 1,000 mls @ 150 mls/hr IV ASDIRECTED RUBY Last Admin: 11/19/20 07:47 Dose: 150 mls/hr Documented by: Oxytocin/Sodium Chloride (Oxytocin 30 Unit/500 Ml-Ns) 30 unit in 500 mls @ 2 mls/hr IV TITRATE [facility]; Protocol Sodium Chloride (Sodium Chloride 0.9%) 1,000 mls @ 125 mls/hr IRR ASDIRECTED [facility] Azithromycin 500 mg/ Sodium (Chloride) 250 mls @ 250 mls/hr IV ONETIME RUBY Last Admin: 11/19/20 10:03 Dose: 250 mls/hr Documented by: Lactated Ringer's (Ringers, Lactated) 1,000 mls @ 125 mls/hr IV ASDIRECTED [facility] Last Admin: 11/19/20 15:58 Dose: 125 mls/hr Documented by: Oxytocin/Sodium Chloride (Oxytocin 30 Unit/500 Ml-Ns) 30 unit in 500 mls @ 999 mls/hr IV TITRATE [facility]; Protocol Ibuprofen (Ibuprofen 800 Mg Tab) 800 mg PO Q8H PRN PRN Reason: mild pain or fever Last Admin: 11/21/20 03:32 Dose: 800 mg Documented by: Lidocaine HCl (Lidocaine 1% 50 Ml Mdv) 50 ml INJECT ONETIME PRN PRN Reason: Laceration repair Methylergonovine Maleate (Methylergonovine 0.2 Mg/1 Ml Amp) 0.2 mg IM ASDIRECTED PRN PRN Reason: Post Hemorrhage Misoprostol (Misoprostol 200 Mcg Tab) 200 mcg PO ONETIME PRN PRN Reason: Post Hemorrhage Misoprostol (Misoprostol 25 Mcg (1/4 Of 100 Mcg) Tab) 25 mcg VAG Q4H PRN PRN Reason: Cervical Ripening Last Admin: 11/18/20 20:09 Dose: 25 mcg Documented by: Nalbuphine HCl (Nalbuphine 10 Mg/1 Ml Vial) 10 mg IVPUSH Q1H PRN PRN Reason: Pain (severe 7-10) Nalbuphine HCl (Nalbuphine 10 Mg/1 Ml Vial) 5 mg IVPUSH ASDIRECTED PRN PRN Reason: Itching Ondansetron HCl (Ondansetron 4 Mg/2 Ml Sdv) 4 mg IVPUSH Q6H PRN PRN Reason: Nausea/Vomiting Last Admin: 11/19/20 00:36 Dose: 4 mg Documented by: Ondansetron HCl (Ondansetron 4 Mg/2 Ml Sdv) 4 mg IVPUSH Q4H PRN PRN Reason: Nausea/Vomiting Ondansetron HCl (Ondansetron 4 Mg/2 Ml Sdv) 4 mg IVPUSH Q6H PRN PRN Reason: Nausea Oxycodone/Acetaminophen (Acetaminophen/Oxycodone 325-5 Mg Tab) 1 tab PO Q4H PRN PRN Reason: Pain (severe 7-10) Last Admin: 11/21/20 03:31 Dose: 1 tab Documented by: Oxycodone/Acetaminophen (Acetaminophen/Oxycodone 325-5 Mg Tab) 2 tab PO Q4H PRN PRN Reason: Pain (severe 7-10) Oxycodone/Acetaminophen (Acetaminophen/Oxycodone 325-5 Mg Tab) 2 tab PO Q6H PRN PRN Reason: Pain (moderate 4-6) Simethicone (Simethicone 80 Mg Tab.Chew) 80 mg PO Q4H PRN PRN Reason: Gas Last Admin: 11/20/20 18:12 Dose: 80 mg Documented by: Sodium Chloride (Sodium Chloride 0.9% 10 Ml Syringe) 10 ml FLUSH ASDIRECTED PRN PRN Reason: Keep Vein Open Sodium Chloride (Sodium Chloride 0.9% 2.5 Ml Syringe) 2.5 ml FLUSH ASDIRECTED PRN PRN Reason: Keep Vein Open Sodium Chloride (Sodium Chloride 0.9% 10 Ml Sdv) 10 ml IV ASDIRECTED PRN PRN Reason: IV Use Sterile Water (Water For Irrigation,Sterile 1,000 Ml Container) 1,000 ml IRR ASDIRECTED PRN PRN Reason: delivery Terbutaline Sulfate (Terbutaline 1 Mg/Ml Sdv) 0.25 mg SUBCUT ASDIRECTED PRN PRN Reason: Tacysystole Discontinued Medications Bupivacaine HCl (Bupivacaine 0.5% 10 Ml Sdv) Confirm Administered Dose 20 ml .ROUTE .[facility]-MED ONE Stop: 11/19/20 07:57 Cefazolin Sodium (Cefazolin 1 Gm Vial) Confirm Administered Dose 1 gm .ROUTE .[facility] ONE Stop: 11/19/20 08:08 Fentanyl (Fentanyl 100 Mcg/2 Ml Sdv) Confirm Administered Dose 100 mcg .ROUTE . [facility] ONE Stop: 11/19/20 07:55 Ropivacaine (Naropin 0.2%) Confirm Administered Dose 200 mls @ as directed .ROUTE .[facility] ONE Stop: 11/19/20 02:04 Last Admin: 11/20/20 08:52 Dose: Not Given Documented by: Sodium Chloride (Normal Saline (Advbag)) Confirm Administered Dose 250 mls @ as directed .ROUTE .[facility]-MED ONE Stop: 11/19/20 06:57 Last Admin: 11/20/20 08:52 Dose: Not Given Documented by: Sodium Chloride (Normal Saline (Advbag)) Confirm Administered Dose 250 mls @ as directed .ROUTE .[facility] ONE Stop: 11/19/20 06:58 Last Admin: 11/20/20 08:52 Dose: Not Given Documented by: Dextrose/Water (Dextrose 10% In Water) Confirm Administered Dose 500 mls @ as directed .ROUTE .[facility] ONE Stop: 11/19/20 08:51 Last Admin: 11/20/20 08:52 Dose: Not Given Documented by: Ketorolac Tromethamine (Ketorolac 30 Mg/Ml Sdv) Confirm Administered Dose 30 mg .ROUTE .[facility]-MED ONE Stop: 11/19/20 08:59 Ketorolac Tromethamine (Ketorolac 30 Mg/Ml Sdv) 30 mg IVPUSH Q6H [facility] Stop: 11/20/20 09:16 Last Admin: 11/20/20 09:06 Dose: 30 mg Documented by: Lidocaine (Lidocaine 2% 5 Ml Sdv) Confirm Administered Dose 5 ml .ROUTE .[facility]-MED ONE Stop: 11/19/20 07:57 Miscellaneous Medication (Phenylephrine Hcl In 0.9% Nacl 1 Mg/10 Ml Syringe) Confirm Administered Dose 1 mg .ROUTE .[facility]-MED ONE Stop: 11/19/20 08:31 Miscellaneous Medication (Phenylephrine Hcl In 0.9% Nacl 1 Mg/10 Ml Syringe) Confirm Administered Dose 1 mg .ROUTE .[facility]-MED ONE Stop: 11/19/20 08:59 Morphine Sulfate (Morphine Pf 10 Mg/10 Ml Sdv) Confirm Administered Dose 10 mg .ROUTE .[facility]-MED ONE Stop: 11/19/20 08:35 Naloxone HCl (Naloxone 0.4 Mg/Ml Syringe) 0.1 mg IVPUSH ONETIME PRN PRN Reason: Respiratory Depression Stop: 11/20/20 11:42 Ondansetron HCl (Ondansetron 4 Mg/2 Ml Sdv) Confirm Administered Dose 4 mg .ROUTE .STK-MED ONE Stop: 11/19/20 08:59 Oxytocin (Oxytocin 10 Units/1 Ml Sdv) Confirm Administered Dose 30 unit .ROUTE .[facility]-MED ONE Stop: 11/19/20 08:59 - Interaction Disposition, : Libby in Room with Family Interaction: Holding Infant Feeding: Breastfed Infant; Nursed Well, Other (see below) Support Person: - Recovery Exam Fundal Tone: Firm Fundal Level: 1 Fingerbreadths Below Umbilicus Fundal Placement: Midline Lochia Amount: Scant Lochia Color: Rubra/Red Perineum Description: Intact, Minimal Bruising/Swelling Episiotomy/Laceration: None Bladder Status: Voiding Urinary Elimination: Voided - Exam General: Alert, Oriented Neck: Supple, Trachea Midline Lungs: Clear to Auscultation, Normal Respiratory Effort Cardiovascular: Regular Rate, Regular Rhythm GI/Abdominal Exam: Soft, Tender Extremities: Normal Inspection, Normal Range of Motion, Non-Tender, No Pedal Edema, Normal Capillary Refill Skin: Warm, Dry, Intact Wound/Incisions: Healing Well, Dressing Dry and Intact Neurological: No New Focal Deficit Psy/Mental Status: Alert, Normal Affect, Normal Mood - Problem List Review Problem List Initiated/Reviewed/Updated: Yes - Assessment Assessment:: 25-year-old female at 39w1d POD #2 admitted for induction of labor due to oligohydramnios s/p primary section d/t persistent category II FHT and nonreassuring heart tones. Endorses incision site pain controlled with medication. Taking docusate. hbg 9.9 from 12.1, asymptomatic. Lovenox started - Plan Plan:: - Multimodal pain control - Continue to monitor incision and dressing - F/u in clinic in 2 weeks - Encourage ambulation - Bleeding controlled with Lovenox restart - Can likely discharge today pending flight operations specialist approval <Mira Howard - Last Filed: 11/21/20 10:16> - Patient Data Vital Signs - Most Recent: Last Vital Signs Temp 36.8 C 11/21/20 08:01 Pulse 83 11/21/20 08:01 Resp 18 11/21/20 08:01 BP 112/68 11/21/20 08:01 Pulse Ox 99 11/21/20 08:01 Med Orders - Current: Current Medications Bisacodyl (Bisacodyl 10 Mg Supp) 10 mg RECTAL ONETIME PRN PRN Reason: Constipation Butorphanol Tartrate (Butorphanol 1 Mg/Ml Sdv) 1 mg IVPUSH Q1H PRN PRN Reason: Pain (severe 7-10) Last Admin: 11/19/20 00:37 Dose: 1 mg Documented by: Carboprost Tromethamine (Carboprost Tromethamine 250 Mcg/1 Ml Amp) 250 mcg IM ASDIRECTED PRN PRN Reason: Post Hemorrhage Diphenhydramine HCl (Diphenhydramine 50 Mg/Ml Sdv) 25 mg IVPUSH Q6H PRN PRN Reason: Itching or Nausea Diphenhydramine HCl (Diphenhydramine 50 Mg/Ml Sdv) 12.5 mg IVPUSH Q2H PRN PRN Reason: Itching Docusate Sodium (Docusate Sodium 100 Mg Cap) 100 mg PO BID RUBY Last Admin: 11/21/20 09:08 Dose: 100 mg Documented by: Emollient Ointment (Lanolin 100% Cream 7 Gm Tube) 0 gm TOP ASDIRECTED PRN PRN Reason: Sore Nipples Last Admin: 11/20/20 02:00 Dose: 7 gram Documented by: Enoxaparin Sodium (Enoxaparin 150 Mg/1 Ml Syringe) 120 mg SUBCUT Q12H [facility] Last Admin: 11/21/20 09:09 Dose: 120 mg Documented by: Fentanyl (Fentanyl 100 Mcg/2 Ml Sdv) 50 mcg IVPUSH Q1H PRN PRN Reason: Pain (severe 7-10) Oxytocin/Sodium Chloride (Oxytocin 30 Unit/500 Ml-Ns) 30 unit in 500 mls @ 999 mls/hr IV TITRATE [facility] Tranexamic Acid 1,000 mg/ (Sodium Chloride) 110 mls @ 660 mls/hr IV ONETIME PRN PRN Reason: Bleeding Lactated Ringer's (Ringers, Lactated) 1,000 mls @ 150 mls/hr IV ASDIRECTED [facility] Last Admin: 11/19/20 07:47 Dose: 150 mls/hr Documented by: Oxytocin/Sodium Chloride (Oxytocin 30 Unit/500 Ml-Ns) 30 unit in 500 mls @ 2 mls/hr IV TITRATE [facility]; Protocol Sodium Chloride (Sodium Chloride 0.9%) 1,000 mls @ 125 mls/hr IRR ASDIRECTED [facility] Azithromycin 500 mg/ Sodium (Chloride) 250 mls @ 250 mls/hr IV ONETIME [facility] Last Admin: 11/19/20 10:03 Dose: 250 mls/hr Documented by: Lactated Ringer's (Ringers, Lactated) 1,000 mls @ 125 mls/hr IV ASDIRECTED [facility] Last Admin: 11/19/20 15:58 Dose: 125 mls/hr Documented by: Oxytocin/Sodium Chloride (Oxytocin 30 Unit/500 Ml-Ns) 30 unit in 500 mls @ 999 mls/hr IV TITRATE [facility]; Protocol Ibuprofen (Ibuprofen 800 Mg Tab) 800 mg PO Q8H PRN PRN Reason: mild pain or fever Last Admin: 11/21/20 03:32 Dose: 800 mg Documented by: Lidocaine HCl (Lidocaine 1% 50 Ml Mdv) 50 ml INJECT ONETIME PRN PRN Reason: Laceration repair Methylergonovine Maleate (Methylergonovine 0.2 Mg/1 Ml Amp) 0.2 mg IM ASDIRECTED PRN PRN Reason: Post Hemorrhage Misoprostol (Misoprostol 200 Mcg Tab) 200 mcg PO ONETIME PRN PRN Reason: Post Hemorrhage Misoprostol (Misoprostol 25 Mcg (1/4 Of 100 Mcg) Tab) 25 mcg VAG Q4H PRN PRN Reason: Cervical Ripening Last Admin: 11/18/20 20:09 Dose: 25 mcg Documented by: Nalbuphine HCl (Nalbuphine 10 Mg/1 Ml Vial) 10 mg IVPUSH Q1H PRN PRN Reason: Pain (severe 7-10) Nalbuphine HCl (Nalbuphine 10 Mg/1 Ml Vial) 5 mg IVPUSH ASDIRECTED PRN PRN Reason: Itching Ondansetron HCl (Ondansetron 4 Mg/2 Ml Sdv) 4 mg IVPUSH Q6H PRN PRN Reason: Nausea/Vomiting Last Admin: 11/19/20 00:36 Dose: 4 mg Documented by: Ondansetron HCl (Ondansetron 4 Mg/2 Ml Sdv) 4 mg IVPUSH Q4H PRN PRN Reason: Nausea/Vomiting Ondansetron HCl (Ondansetron 4 Mg/2 Ml Sdv) 4 mg IVPUSH Q6H PRN PRN Reason: Nausea Oxycodone/Acetaminophen (Acetaminophen/Oxycodone 325-5 Mg Tab) 1 tab PO Q4H PRN PRN Reason: Pain (severe 7-10) Last Admin: 11/21/20 09:13 Dose: 1 tab Documented by: Oxycodone/Acetaminophen (Acetaminophen/Oxycodone 325-5 Mg Tab) 2 tab PO Q4H PRN PRN Reason: Pain (severe 7-10) Oxycodone/Acetaminophen (Acetaminophen/Oxycodone 325-5 Mg Tab) 2 tab PO Q6H PRN PRN Reason: Pain (moderate 4-6) Simethicone (Simethicone 80 Mg Tab.Chew) 80 mg PO Q4H PRN PRN Reason: Gas Last Admin: 11/20/20 18:12 Dose: 80 mg Documented by: Sodium Chloride (Sodium Chloride 0.9% 10 Ml Syringe) 10 ml FLUSH ASDIRECTED PRN PRN Reason: Keep Vein Open Sodium Chloride (Sodium Chloride 0.9% 2.5 Ml Syringe) 2.5 ml FLUSH ASDIRECTED PRN PRN Reason: Keep Vein Open Sodium Chloride (Sodium Chloride 0.9% 10 Ml Sdv) 10 ml IV ASDIRECTED PRN PRN Reason: IV Use Sterile Water (Water For Irrigation,Sterile 1,000 Ml Container) 1,000 ml IRR ASDIRECTED PRN PRN Reason: delivery Terbutaline Sulfate (Terbutaline 1 Mg/Ml Sdv) 0.25 mg SUBCUT ASDIRECTED PRN PRN Reason: Tacysystole Discontinued Medications Bupivacaine HCl (Bupivacaine 0.5% 10 Ml Sdv) Confirm Administered Dose 20 ml .ROUTE .[facility]-MED ONE Stop: 11/19/20 07:57 Cefazolin Sodium (Cefazolin 1 Gm Vial) Confirm Administered Dose 1 gm .ROUTE .STK-MED ONE Stop: 11/19/20 08:08 Fentanyl (Fentanyl 100 Mcg/2 Ml Sdv) Confirm Administered Dose 100 mcg .ROUTE .[facility]-MED ONE Stop: 11/19/20 07:55 Ropivacaine (Naropin 0.2%) Confirm Administered Dose 200 mls @ as directed .ROUTE .[facility]-MED ONE Stop: 11/19/20 02:04 Last Admin: 11/20/20 08:52 Dose: Not Given Documented by: Sodium Chloride (Normal Saline (Advbag)) Confirm Administered Dose 250 mls @ as directed .ROUTE .[facility]-MED ONE Stop: 11/19/20 06:57 Last Admin: 11/20/20 08:52 Dose: Not Given Documented by: Sodium Chloride (Normal Saline (Advbag)) Confirm Administered Dose 250 mls @ as directed .ROUTE .[facility]-MED ONE Stop: 11/19/20 06:58 Last Admin: 11/20/20 08:52 Dose: Not Given Documented by: Dextrose/Water (Dextrose 10% In Water) Confirm Administered Dose 500 mls @ as directed .ROUTE .[facility]-MED ONE Stop: 11/19/20 08:51 Last Admin: 11/20/20 08:52 Dose: Not Given Documented by: Ketorolac Tromethamine (Ketorolac 30 Mg/Ml Sdv) Confirm Administered Dose 30 mg .ROUTE .STK-MED ONE Stop: 11/19/20 08:59 Ketorolac Tromethamine (Ketorolac 30 Mg/Ml Sdv) 30 mg IVPUSH Q6H [facility] Stop: 11/20/20 09:16 Last Admin: 11/20/20 09:06 Dose: 30 mg Documented by: Lidocaine (Lidocaine 2% 5 Ml Sdv) Confirm Administered Dose 5 ml .ROUTE .STK-MED ONE Stop: 11/19/20 07:57 Miscellaneous Medication (Phenylephrine Hcl In 0.9% Nacl 1 Mg/10 Ml Syringe) Confirm Administered Dose 1 mg .ROUTE .STK-MED ONE Stop: 11/19/20 08:31 Miscellaneous Medication (Phenylephrine Hcl In 0.9% Nacl 1 Mg/10 Ml Syringe) Confirm Administered Dose 1 mg .ROUTE .STK-MED ONE Stop: 11/19/20 08:59 Morphine Sulfate (Morphine Pf 10 Mg/10 Ml Sdv) Confirm Administered Dose 10 mg .ROUTE .STK-MED ONE Stop: 11/19/20 08:35 Naloxone HCl (Naloxone 0.4 Mg/Ml Syringe) 0.1 mg IVPUSH ONETIME PRN PRN Reason: Respiratory Depression Stop: 11/20/20 11:42 Ondansetron HCl (Ondansetron 4 Mg/2 Ml Sdv) Confirm Administered Dose 4 mg .ROUTE .STK-MED ONE Stop: 11/19/20 08:59 Oxytocin (Oxytocin 10 Units/1 Ml Sdv) Confirm Administered Dose 30 unit [facility] Stop: 11/19/20 08:59 - Problem List Review Problem List Initiated/Reviewed/Updated: Yes - Assessment Assessment:: patient was seen and examined by me and agree with above. Discharge instructions reviewed.
[2020-11-21] MEDS: Docusate Sodium 100 MG Cap PO SCH (09:08)
[2020-11-21] MEDS: Enoxaparin 150 MG/1 ML Syringe SUBCUT SCH (09:09)
== END 2020-11-21 12:20 | disposition home or self-care (01) | DRG 540 ==
LOC: MW.OBCHECK 18:12 → MW.OB 18:13 → MW.OBCHECK 19:18 → OBSVTOIN 11-19 09:10 → MW.OB 11-19 14:29
PROVIDERS: ADMIT Obstetrics & Gynecology; ATTEND Obstetrics & Gynecology
PROC: 10D00Z1 Extraction of Products of Conception, Low, Open Approach (ICD-10-PCS; principal; 2020-11-19)
DX: O41.03X0 Oligohydramnios, third trimester, not applicable or unspecified (principal); Z3A.39 39 weeks gestation of pregnancy; O99.214 Obesity complicating childbirth; O76 Abnormality in fetal heart rate and rhythm complicating labor and delivery; Z20.822 Contact with and (suspected) exposure to COVID-19; Z37.0 Single live birth; Z79.01 Long term (current) use of anticoagulants; Z86.718 Personal history of other venous thrombosis and embolism
CPT/HCPCS: 01967; 01968; 36415; 51702; 59025; 82803; 85014; 85018; 85027; 85730; 86592; 86850; 86900; 86901; A9270-GY; J0456; J0595; J0690; J1650; J1885; J2270; J2370; J2405; J2590; J2795; J3010; J3490; J7050; J7120; U0002

== ENCOUNTER 2021-02-25 08:23 | Day surgery (SDC) | payer BC ==
[~2021-02-25 08:23] MED LIST: Albuterol 0.083% 2.5 MG/3 ML Neb Soln NEB PRN; HYDROmorphone 1 MG/ML Syringe IVPUSH PRN; Lactated Ringers 1,000 ML IV SCH; Metoclopramide 10 MG/2 ML SDV IVPUSH PRN; Morphine 2 MG/ML SYRINGE IVPUSH PRN; Naloxone 0.4 MG/ML SDV IVPUSH PRN; Ondansetron 4 MG/2 ML SDV IVPUSH PRN; Sodium Chloride 0.9% 10 ML Syringe FLUSH PRN; Sodium Chloride 0.9% 2.5 ML Syringe FLUSH PRN; Sodium Chloride 0.9% 20 ML SDV IV PRN; fentaNYL 100 MCG/2 ML SDV IVPUSH PRN
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
[2021-02-25] MEDS ORDERED: fentaNYL 100 MCG/2 ML SDV ONE (09:04)
[2021-02-25] MEDS ORDERED: Lidocaine 2% 5 ML SDV ONE (09:04)
[2021-02-25] MEDS ORDERED: Rocuronium Bromide 50 MG/5 ML Syringe ONE (09:04)
[2021-02-25] MEDS ORDERED: Propofol 200 MG/20 ML SDV ONE (09:04)
[2021-02-25] MEDS ORDERED: Midazolam 1 MG/ML 2 ML SDV ONE (09:05)
[2021-02-25] MEDS ORDERED: Esmolol 100 MG/10 ML SDV ONE (09:24)
[2021-02-25] MEDS ORDERED: Bupivacaine 0.5% 30 ML SDV ONE (09:27)
[2021-02-25] MEDS ORDERED: Octyl 2-Cyanoacrylate 1 Tube ONE (09:27)
[2021-02-25] MEDS ORDERED: ceFAZolin 1 GM Vial ONE (10:01)
[2021-02-25] MEDS ORDERED: Ketorolac 30 MG/ML SDV ONE (10:21)
[2021-02-25] MEDS ORDERED: Ondansetron 4 MG/2 ML SDV ONE (10:21)
[2021-02-25] MEDS ORDERED: Sugammadex Sodium 200 MG/2 ML VIAL ONE (10:21)
--- NOTE | 2021-02-25 11:11 | PCM.OPNOTE ---
- General Post-Op/Procedure Note Date of Surgery/Procedure: 02/25/21 Operative Procedure(s): Laparoscopic cholecystectomy Findings: Mildly distended gallbladder and scant omental adhesions Pre Op Diagnosis: Symptomatic cholelithiasis Post-Op Diagnosis: same Anesthesia Technique: General ET Tube Primary Surgeon: Lucy Hillman Pathology: gallbladder Fluid Replacement, Intraop: 1,000 Output, Urine Amount: 125 EBL in mLs: 5 Condition: Good
--- NOTE | 2021-02-25 11:14 | PCM.POSTAN ---
POST ANESTHESIA ASSESSMENT - MENTAL STATUS Mental Status: Alert, Oriented - VITAL SIGNS Vital Signs: Last Vital Signs Temp 97.7 F 02/25/21 09:07 Pulse 84 02/25/21 09:07 Resp 16 02/25/21 09:07 BP 102/62 02/25/21 09:07 Pulse Ox 96 02/25/21 09:07 - RESPIRATORY Respiratory Status: Respiratory Rate WNL, Airway Patent, O2 Saturation Stable - CARDIOVASCULAR CV Status: Pulse Rate WNL, Blood Pressure Stable - GASTROINTESTINAL GI Status: No Symptoms - POST OP HYDRATION Hydration Status: Adequate & Stable
--- NOTE | 2021-02-25 11:15 | PCM48HPAN ---
Post Anesthesia Note - EVALUATION WITHIN 48HRS OF ANESTHETIC Vital Signs in Normal Range: Yes Patient Participated in Evaluation: Yes Respiratory Function Stable: Yes Airway Patent: Yes Cardiovascular Function Stable: Yes Hydration Status Stable: Yes Pain Control Satisfactory: Yes Nausea and Vomiting Control Satisfactory: Yes Mental Status Recovered: Yes Vital Signs: Last Vital Signs Temp 97.7 F 02/25/21 09:07 Pulse 84 02/25/21 09:07 Resp 16 02/25/21 09:07 BP 102/62 02/25/21 09:07 Pulse Ox 96 02/25/21 09:07
[2021-02-25] MEDS ORDERED: Acetaminophen/oxyCODONE 325-5 MG Tab PO ONE (12:25)
--- NOTE | 2021-02-25 16:45 | OR ---
SURGEON: LUCY HILLMAN MD DATE OF PROCEDURE: 02/25/2021 PREOPERATIVE DIAGNOSIS: Symptomatic cholelithiasis. POSTOPERATIVE DIAGNOSIS: Symptomatic cholelithiasis. PROCEDURE PERFORMED: Laparoscopic cholecystectomy. PRIMARY SURGEON: Lucy Hillman MD ANESTHESIA: General endotracheal anesthesia. FLUIDS: 1000 mL crystalloid. ESTIMATED BLOOD LOSS: 5 mL. URINE OUTPUT: 125 mL. FINDINGS: Mildly distended gallbladder with minimal adhesions to the surrounding omentum. COMPLICATIONS: None. INDICATIONS: The patient is a 25-year-old female who presented to clinic with symptomatic cholelithiasis. We discussed the need for a laparoscopic, possible open cholecystectomy. I explained the procedure, expected perioperative course, and the risks. She verbalized understanding and wishes to proceed. PROCEDURE IN DETAIL: The patient was brought in to the OR and placed on the OR table in supine position. A time-out was completed verifying the patient's name, age, date of , allergies, and procedure to be performed. General endotracheal anesthesia was induced. The left arm was tucked at the patient's side and a Erickson catheter placed. The abdomen was prepped and draped in usual standard fashion. I anesthetized the supraumbilical fold with 0.5% Marcaine plain. A vertical incision was made along the supraumbilical fold using an 11 blade. Cautery was used to dissect down to the level of subcutaneous fat. I bluntly dissected down to the fascia. The fascia was elevated with Kochers and incised sharply with curved Hubbard scissors. Entry into the abdomen was obtained using a hemostat. A 12 mm Дмитрий trocar was inserted into the abdomen and it was insufflated. A 5 mm 30-degree scope was inserted and I inspected the area underneath my initial trocar placement. No damage to surrounding structures was noted. The patient was placed into reverse Trendelenburg position and airplaned slightly to the left. 5 mm trocars were placed in the following locations under direct visualization; one in the epigastric area, one in the right flank, and one 2 fingerbreadths below the right subcostal margin in the midclavicular line. The dome of the gallbladder was grasped and elevated. There were some small omental adhesions along the infundibulum. These were gently swept away using suction. I then took down all of the attachments around the cystic duct and artery using a combination of hook cautery and blunt dissection. I then cleared away one-third of the cystic plate. Once my critical view was achieved, a photograph of this was taken. I then triply clipped and ligated the cystic duct. I then doubly clipped and ligated the cystic artery. The remainder of the attachments of the gallbladder to the cystic plate were taken down using hook cautery. The gallbladder was placed in an EndoCatch bag and removed through the 12 mm port site. I inspected my operative field. There was no evidence of bile leakage and it appeared hemostatic. A photograph was taken. The 5 mm trocars were removed under direct visualization, the abdomen allowed to desufflate. The 12 mm trocar was removed as well. The fascia at the supraumbilical port site was closed with interrupted 0 Vicryl sutures. The subcutaneous fat layer was closed with layers of interrupted 3-0 Vicryl suture. The skin was closed with a running 4-0 Monocryl stitch. The 5 mm trocar sites were closed with interrupted 4-0 Monocryl sutures. Dermabond and sterile dressings were applied. The patient tolerated the procedure well, was extubated, and taken to PACU in stable condition. All counts were complete and correct at the end of the case. NOHEMI / JEANNE /[id number]
== END 2021-02-25 13:20 | disposition home or self-care (01) ==
LOC: MW.SDS 08:23
PROVIDERS: ATTEND Surgery
DX: K80.10 Calculus of gallbladder with chronic cholecystitis without obstruction (principal); K21.9 Gastro-esophageal reflux disease without esophagitis; E66.9 Obesity, unspecified; Z88.5 Allergy status to narcotic agent; Z79.899 Other long term (current) drug therapy; Z98.890 Other specified postprocedural states; Z68.39 Body mass index [BMI] 39.0-39.9, adult
CPT/HCPCS: 47562; 81025; A9270; J0131; J0690; J1885; J2250; J2405; J2704; J3010; J3490; J7120; 00790